=== PATIENT | female | born 1960 | race Caucasian/White ===

== ENCOUNTER 2020-12-24 10:17 | Emergency (ER) | payer OTHER ==
[~2020-12-24] VITALS: Ht 162.6 cm; Wt 54.4 kg
--- NOTE | ~2020-12-24 | EMS ---
[address] [address] EMS [facility] Room #: REG JULIANN Jones.Rosio#: [id number] Admission: 12/24/20 Attend Phys: Discharge: Date of : [birth year] Report #: [id number] THIS REPORT FOR: //name// Report Transmitted: 12/24/2020 18:59 EMS Care Summary [place], [place]/[facility] Incident [phone] @ 12/24/2020 09:41 Incident Location [facility] / [place] [address] Patient NIKITA SALDAÑA Female, Patient Address Chief Complaint ASM Disposition Transported No Lights/[place] Dispatch Reason Unknown Problem/Person Down Transported To [facility] Narrative Arrived on the scene, with [facility], for an approx 60 y/o female that is sitting on the curb. As we pulled up, Pt began to run away and PD stopped her and brought her back to the ambulance. Pt refusing to answer any PD questions. Pt is also refusing to answer any of our questions. When the Pt does say something, she does it in a screaming matter and unable to understand what she is saying. Pt tries to be uncooperative but after asking her a few times to do something, Pt will. See Pt Assessment AMS See FLowchart. Assisted the Pt to the cot. Transported to the hospital with [address] [address] EMS Patient Care Report Name: SUMANTH LI ONE Room #: REG M.R.#: [id number] Admission: 12/24/20 Attend Phys: Discharge: Date of : [birth year] Report #: [id number] zero change or incidents. Assisted the Pt from the cot to the bed. Transferred care to receiving facility. Initial Vitals @09:53P: 114,R: 18,BP: 149/83,Pain: 0/10,GCS: 13,Glucose: 115,Revised Trauma: 12, @10:07P: 97,R: 16,BP: 111/62,Pain: 0/10,GCS: 13,SpO2: 97,Revised Trauma: 12, Assessments @09:50MENTAL:Combative,SKIN:HEENT:Head/Face: No Abnormalities,Eyes: No Abnormalities,Neck/Airway: No Abnormalities,LUNG SOUNDS:General: No Abnormalities,Left Upper: No Abnormalities,Right Upper: No Abnormalities,Left Lower: No Abnormalities,Right Lower: No Abnormalities,ABDOMEN:General: No Abnormalities,Left Upper: No Abnormalities,Right Upper: No Abnormalities,Left Lower: No Abnormalities,Right Lower: No Abnormalities,PELVIS//GI:No Abnormalities,EXTREMITIES:Left Arm: No Abnormalities,Right Arm: No Abnormalities,Left Leg: No Abnormalities,Right Leg: No Abnormalities,PULSE:Radial: 2+ Normal,NEURO:No Abnormalities, Impression Altered Mental Status Procedures @09:50ALS AssessmentResponse: UnchangedSucceeded Timeline 09:41,Call Received :,Dispatch Notified 09:41,Dispatched 09:42,En Route 09:50,On Scene 09:50,At Patient 09:50,ALS Assessment,Response: UnchangedSucceeded, 09:53,BP: 149/83 M,PULSE: 114,RR: 18 R,SPO2: Ox,ETCO2: ,B,PAIN: 0,GCS: 13, 09:57,Depart Scene 10:07,At Destination 10:07,BP: 111/62 M,PULSE: 97,RR: 16 R,SPO2: 97 Ox,ETCO2: ,BG: ,PAIN: 0,GCS: 13, 10:26,Call Closed Disclaimer v1.1 Copyright 2020 [employer] This EMS Care Summary contains data elements from the applicable legal record (which may be displayed differently). It is designed to provide pertinent information for the following purposes: continuity of care, clinical quality, and state data reporting. The complete legal record is available to ED staff [address] [address] EMS Patient Care Report Name: SUMANTH LI ONE Room #: REG JULIANN Vargas#: [id number] Admission: 12/24/20 Attend Phys: Discharge: Date of : [birth year] Report #: [id number] and administrators of the receiving hospital in ES's Patient Tracker. All data is provided "as is."
--- NOTE | 2020-12-24 15:48 | EKG ---
[facility] [address] [place] [address] ELECTROCARDIOGRAM REPORT Name: SUMANTH LI Room #: ELVIS Vargas#: [id number] Admission: 12/24/20 Attend Phys: Discharge: Date of : [birth year] Report #: [id number] [facility] ED Test Date: 2020-12-24 Test Time: 15:43:39 Pat Name: SUMANTH LI Department: Room: Gender: F Psychiatric Rn: : 1959-07-26 Requested By: Matt Augustine Order Number: [id number] MD: Ángel Cassidy Measurements Intervals [place] Rate: 113 P: 78 AK: 116 QRS: 75 QRSD: 81 T: 54 QT: 357 QTc: 490 Interpretive Statements Sinus tachycardia Biatrial enlargement Borderline repolarization abnormality Borderline prolonged QT interval Baseline wander in lead(s) V3,V4 No previous ECG available for comparison Electronically Signed On 12-24-2020 15:48:32 CDT by Ángel Cassidy [email or web address] <ELECTRONICALLY SIGNED> By: Ángel Cassidy MD, [facility] 12/24/20 1548 1543 1543 Ángel Cassidy MD, FACC /EPI
[2020-12-24 16:01] LABS: URINE BILIRUBIN NEGATIVE (Negative); URINE BLOOD NEGATIVE (Negative); URINE CLARITY CLOUDY; URINE COLOR YELLOW; URINE GLUCOSE-RANDOM* NEGATIVE (Negative); URINE KETONES NEGATIVE (Negative); URINE LEUKOCYTES-REFLEX 2+ (Negative); URINE NITRITE-REFLEX POSITIVE (Negative); URINE PROTEIN (DIPSTICK) NEGATIVE (Negative); URINE SPECIFIC GRAVITY <= 1.005 (1.005-1.035); URINE UROBILINOGEN 0.2 E.U./dl (0.2-1.0)
[2020-12-24 16:09] LABS: BACTERIA-REFLEX >30 Many /HPF (None Seen); CASTS None Seen /LPF (None Seen); CRYSTALS None Seen /LPF (None Seen); SQUAMOUS 0-3 Few /LPF (0-3); URINE RBC None Seen /HPF (NONE SEEN); URINE WBC-REFLEX 6-15 Few /HPF (0-5)
[2020-12-24 16:29] LABS: ABSOLUTE NEUTROPHILS 3.1 thou/uL (1.4-8.2); BASOPHILS 1.2 % (0.0-2.0); EOSINOPHILS 1.1 % (0.0-3.0); HEMATOCRIT 37.9 % (37.0-47.0); HEMOGLOBIN 12.4 gm/dL (12.0-15.0); LYMPHOCYTES 36.3 % (24.0-44.0); MCHC 32.6 g/dL (28.0-37.0); MCV 98.2 fL (80.0-100.0); MONOCYTES 8.4 % (1.0-8.0); PLATELET COUNT 269 thou/uL (150-400); RBC 3.86 mil/uL (4.20-5.00); RDW 13.6 % (10.5-14.5); WBC 5.9 thou/uL (4.0-11.0)
[2020-12-24 16:35] LABS: AMP/METHAMP POSITIVE (Negative); BARBITURATES Negative (Negative); BENZODIAZEPINES Negative (Negative); COCAINE Negative (Negative); METHADONE Negative (Negative); OPIATES Negative (Negative); PCP Negative (Negative)
[2020-12-24 16:38] LABS: ANION GAP 9 mmol/L (7-16); BUN 9 mg/dL (7-18); CALCIUM 8.6 mg/dL (8.5-10.1); CHLORIDE 108 mmol/L (98-107); CO2 26 mmol/L (21-32); CREATININE 0.6 mg/dL (0.6-1.0); GLUCOSE 92 mg/dL (74-106); POTASSIUM 3.3 mmol/L (3.5-5.1); SODIUM 143 mmol/L (136-145)
[2020-12-24 16:48] LABS: ALBUMIN 3.3 g/dL (3.4-5.0); LIPASE 35 U/L (73-393); MAGNESIUM 1.9 mg/dL (1.8-2.4); SALICYLATE 5.4 mg/dL (2.8-20.0); SGOT 28 U/L (15-37); SGPT 25 U/L (14-59); TOTAL BILIRUBIN 0.3 mg/dL (0.2-1.0); TOTAL PROTEIN 6.6 g/dL (6.4-8.2); TROPONIN-I <0.06 ng/mL (<0.06)
[2020-12-24 21:28] VITALS: BP 99/62
== END 2020-12-24 21:28 | disposition home or self-care (01) ==
LOC: ER 10:17 → EDBD 10:17 → ER 21:28
PROVIDERS: Emergency Medicine
DX: R41.82 Altered mental status, unspecified (principal); F10.10 Alcohol abuse, uncomplicated; F15.10 Other stimulant abuse, uncomplicated; Y90.9 Presence of alcohol in blood, level not specified